=== PATIENT | female | born 1995 | race Caucasian/White ===

== ENCOUNTER 2020-10-28 11:11 | Emergency (ER) | payer OTHER ==
[~2020-10-28 11:11] MED LIST: VENTOLIN HFA IN18 GM INH
[2020-10-28 11:44] LABS: BASOPHIL 0.5 % (0-2); EOSINOPHIL 1.3 % (0-5); HCT 43.1 % (37.0-47.0); HGB 14.7 g/dl (12.5-16.0); LYMPHOCYTE 18.2 % (15-48); MCH 30.2 pg (25.0-31.0); MCHC 34.1 g/dL (32.0-36.0); MCV 88.5 fL (78.0-100.0); MONOCYTE 5.7 % (0-12); MPV 11.1 fL (6.0-9.5); NEUTROPHIL 73.7 % (41-80); NRBC 0; PLT 205 K/uL (150-400); RBC 4.87 M/uL (4.20-5.40); WBC 8.4 K/uL (4.0-10.5)
[2020-10-28 12:05] LABS: BILIRUBIN NEGATIVE (NEGATIVE); BLOOD NEGATIVE Ery/uL (NEGATIVE); CLARITY CLEAR (CLEAR); COLOR YELLOW (YELLOW); GLUCOSE (U) NORMAL (NORMAL); LEUKOCYTES 1+ Leu/uL (NEGATIVE); NITRITE NEGATIVE (NEGATIVE); PROTEIN NEGATIVE (NEGATIVE); UROBILINOGEN 0.2 mg/dL (0.2-1.0); pH 6.5 (5.0-9.0)
[2020-10-28 12:10] LABS: ALBUMIN 3.8 g/dL (3.4-5.0); BILIRUBIN - TOTAL 0.7 mg/dL (0.2-1.0); BUN/CREAT RATIO (CALC) 20.9 RATIO; CREATININE 0.67 mg/dL (0.51-0.95); GLOBULIN (CALCULATION) 3.9 g/dL; POTASSIUM 4.1 mmol/L (3.5-5.1); TOTAL PROTEIN 7.7 g/dL (6.4-8.2)
[2020-10-28 12:13] LABS: AMORPHOUS URATES CRYSTALS TRACE; BACTERIA TRACE; URINARY WBC RARE
[2020-10-28] MEDS ORDERED: PROTONIX 40MG T40 MG PO (13:40)
[2020-10-28] MEDS ORDERED: ONDANSETRON ODT4 MG SL (13:40)
[2020-10-28] MEDS ORDERED: BENTYL10 MG PO (13:40)
[2020-10-28] MEDS ORDERED: CARAFATE1 GM PO (13:40)
== END 2020-10-28 13:50 | disposition home or self-care (01) ==
LOC: FER 11:11
PROVIDERS: Emergency Medicine Emergency Medical Services
DX: K59.00 Constipation, unspecified (principal); R11.0 Nausea; F17.200 Nicotine dependence, unspecified, uncomplicated
CPT/HCPCS: 36415; 74022; 80053; 81001; 83690; 85025; 87339; J1885; J2405; J7030

== ENCOUNTER 2021-01-03 09:54 | Day surgery (SDCO) | payer OTHER ==
[~2021-01-03] VITALS: Ht 170 cm; Wt 119.0 kg
[~2021-01-03 09:54] MED LIST changes: +BENTYL10 MG PO; +CARAFATE1 GM PO; +ONDANSETRON ODT4 MG SL; +PROTONIX 40MG T40 MG PO
[2021-01-03 11:00] LABS: BASOPHIL 0.5 % (0-2); EOSINOPHIL 0.6 % (0-5); HCT 42.7 % (37.0-47.0); HGB 14.3 g/dl (12.5-16.0); MCH 29.5 pg (25.0-31.0); MCHC 33.5 g/dL (32.0-36.0); MONOCYTE 5.6 % (0-12); MPV 11.7 fL (6.0-9.5); NEUTROPHIL 78.1 % (41-80); NRBC 0; PLT 223 K/uL (150-400); RBC 4.85 M/uL (4.20-5.40); RDW 12.3 % (11.5-14.0); WBC 8.2 K/uL (4.0-10.5)
[2021-01-03 11:01] LABS: BILIRUBIN 1+ mg/dL (NEGATIVE); BLOOD NEGATIVE Ery/uL (NEGATIVE); CLARITY CLEAR (CLEAR); GLUCOSE (U) NORMAL (NORMAL); LEUKOCYTES 1+ Leu/uL (NEGATIVE); NITRITE NEGATIVE (NEGATIVE); PROTEIN NEGATIVE (NEGATIVE); SPECIFIC GRAVITY 1.025 (1.001-1.030)
[2021-01-03 11:05] LABS: COLOR STRAW (YELLOW)
[2021-01-03 11:07] LABS: BACTERIA 1+
[2021-01-03 11:11] LABS: ALBUMIN 3.8 g/dL (3.4-5.0); BILIRUBIN - TOTAL 1.9 mg/dL (0.2-1.0); BUN/CREAT RATIO (CALC) 17.9 RATIO; CREATININE 0.67 mg/dL (0.51-0.95); GLOBULIN (CALCULATION) 3.6 g/dL; POTASSIUM 4.5 mmol/L (3.5-5.1); TOTAL PROTEIN 7.4 g/dL (6.4-8.2)
[2021-01-04 06:24] LABS: BASOPHIL 0.5 % (0-2); EOSINOPHIL 2.6 % (0-5); HCT 40.3 % (37.0-47.0); HGB 13.2 g/dl (12.5-16.0); LYMPHOCYTE 44.3 % (15-48); MCH 29.2 pg (25.0-31.0); MCHC 32.8 g/dL (32.0-36.0); MCV 89.2 fL (78.0-100.0); MONOCYTE 11.2 % (0-12); NEUTROPHIL 41.1 % (41-80); NRBC 0; PLT 185 K/uL (150-400); RBC 4.52 M/uL (4.20-5.40); RDW 12.2 % (11.5-14.0); WBC 3.8 K/uL (4.0-10.5)
[2021-01-04 06:37] LABS: ALBUMIN 3.2 g/dL (3.4-5.0); BILIRUBIN - TOTAL 1.4 mg/dL (0.2-1.0); BUN/CREAT RATIO (CALC) 9.7 RATIO; CREATININE 0.72 mg/dL (0.51-0.95); GLOBULIN (CALCULATION) 3.4 g/dL; POTASSIUM 4.3 mmol/L (3.5-5.1); TOTAL PROTEIN 6.6 g/dL (6.4-8.2)
--- NOTE | 2021-01-04 08:57 | NUR ---
01/04/21 Please consider discharge or full admit.
[2021-01-04] MEDS ORDERED: CULTURELLE1 EAC1 PO ×2 (11:32→11:41)
[2021-01-04] MEDS ORDERED: AUGMENTIN 875-1 EACH PO ×2 (11:32→11:41)
[2021-01-04] MEDS ORDERED: PERCOCET 5-3251 EACH PO ×2 (11:32→11:41)
== END 2021-01-04 18:20 | disposition home or self-care (01) ==
LOC: FER 09:54 → FMS 12:38
PROVIDERS: Emergency Medicine; Nurse Practitioner; ADMIT Internal Medicine
DX: K80.12 Calculus of gallbladder with acute and chronic cholecystitis without obstruction (principal); R79.89 Other specified abnormal findings of blood chemistry; F41.9 Anxiety disorder, unspecified; F32.9 Major depressive disorder, single episode, unspecified; E28.2 Polycystic ovarian syndrome; Z20.822 Contact with and (suspected) exposure to COVID-19
CPT/HCPCS: 36415; 71045; 76000; 76705; 80053; 81001; 83690; 85025; 93005; 94010; G0378; J0295; J1100; J1170; J1885; J2250; J2405; J2704; J2710; J3010; J7030; J7120; Q9967; U0002